=== PATIENT | male | born 1950 | race Caucasian/White ===

== ENCOUNTER 2017-06-19 15:40 | Emergency (ER) | payer MEDICARE, MEDICAID ==
[~2017-06-19] VITALS: Ht 190.5 cm; Wt 64.4 kg
[~2017-06-19 15:40] MED LIST: B-1100 MG PO; CALCIUM-MAGNES1 EAC4 PO; CLARINEX-D 121 EACH PO; FOLIC ACID1 MG PO; HYDROXYZINE HCL50 MG PO; KEFLEX500 MG PO; MULTI VITAMIN1 EACH PO; NIACIN100 MG PO; OMEGA 3 1,0001 EACH PO; VITAMIN D5000 UNIT PO
[2017-06-19] MEDS ORDERED: IBUPROFEN200 M1 PO (15:52)
--- NOTE | 2017-06-21 00:36 | EKG ---
[facility] [address] [facility] [place], [place] [address] Signed Sinus rhythm with short MD Otherwise normal ECG No previous ECGs available Confirmed by SHARIF JAMES MD ([id number]) on 06/21/2017 12:36:36 AM Electronically Signed By: SHARIF JAMES MD 06/21/17 0036 PATIENT NAME: ELHAM RODRIGUEZ JOEL Electrocardiogram DATE OF : 50 PHYSICIAN: SHARIF JAMES MD REPORT #: [id number] REPORT IS CONFIDENTIAL AND NOT TO BE RELEASED WITHOUT AUTHORIZATION
== END 2017-06-19 17:20 | disposition home or self-care (01) ==
LOC: ED 15:40
DX: S46.911A Strain of unspecified muscle, fascia and tendon at shoulder and upper arm level, right arm, initial encounter (principal); S46.912A Strain of unspecified muscle, fascia and tendon at shoulder and upper arm level, left arm, initial encounter; F17.200 Nicotine dependence, unspecified, uncomplicated; X58.XXXA Exposure to other specified factors, initial encounter
CPT/HCPCS: 71020; 80053; 84484; 85025; 93005; 93010; 96374; 99283; J1885

== ENCOUNTER 2018-12-09 07:36 | Day surgery (SDC) | payer MEDICARE, MEDICAID ==
[~2018-12-09] VITALS: Ht 190.5 cm; Wt 69.8 kg
[~2018-12-09 07:36] MED LIST changes: +ALLERGY RELIEF10 MG PO; +IBUPROFEN200 M1 PO; +MULTI VITAMIN1 EACH; +PREVNAR 13 SYR0.5 ML; +VITAMIN D400 UNIT PO
--- NOTE | 2018-12-09 09:33 | NUR ---
12/09/18 0933 Georgie Wyatt 0903 PATIENT ARRIVES TO PACU AWAKE OFF/ON. RESP EVEN AND UNLABORED, NC AT 3 LITERS, TURNED OFF ON ARRIVAL WITH ROOM AIR SATS >95%. PATIENT DENIES PAIN OR NAUSEA WHEN AWAKE, PASSING GAS.
--- NOTE | 2018-12-10 21:40 | OR ---
[facility] [address] [place], [place] [address] Signed DATE OF OPERATION: SURGEON: Montserrat Osei MD PREOPERATIVE DIAGNOSES: 1. Episodes of left lower abdominal pain, suggestive of diverticulitis. 2. Recent persisting nagging right lower quadrant pain. POSTOPERATIVE DIAGNOSES: 1. Sigmoid diverticulosis. 2. Small polyp of left colon and cecum. 3. 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 PROCEDURE PERFORMED: Total colonoscopy to cecum with cold morcellation polypectomy x3. ANESTHESIA: Intravenous sedation, fentanyl 100 mcg, Versed 4 mg. INDICATION: This 68-year-old white man is a patient of Dr. Mary Villarreal. He has had complaints of left lower abdominal pain, which have been ongoing. He also has some rectal bleeding in the past, none recently, however. He also has recently developed right lower abdominal pain. This is a nagging type pain, not worsening, but not improving either. He is admitted at this time to undergo colonoscopy. He understands the risks of bleeding, infection, and perforation. FINDINGS: The prep was good. Complete colonoscopy was undertaken to the cecum. Diverticula were noted in the sigmoid. There were 2 small polyps of the left colon and cecum, but most importantly an adenoma of the orifice of the appendix. Whether or not this is causing an appendiceal colic type problem is uncertain. Polypectomy was undertaken. DESCRIPTION OF PROCEDURE: The patient was brought to the endoscopy suite and placed in lateral decubitus position, given intravenous sedation to a point of slurred speech and nystagmus. Digital rectal examination was normal. An Olympus video colonoscope was passed in the rectum and manipulated throughout the colon. Numerous diverticula were seen in the sigmoid. Scope was ultimately advanced to the cecum itself. Close inspection showed the appendiceal orifice to have an adenoma in Electronically Signed By: MONTSERRAT OSEI MD 12/10/18 0571 PATIENT NAME: ELHAM RODRIGUEZ OPERATIVE REPORT DATE OF : 50 REPORT #: [id number] PHYSICIAN: MONTSERRAT OSEI MD PCP: MARY VILLARREAL MD REPORT IS CONFIDENTIAL AND NOT TO BE RELEASED WITHOUT AUTHORIZATION [facility] [address] [place], [place] [address] Signed its lumen. With various manipulations, it was grasped and multiple biopsies and excised completely. Bleeding stopped reasonably promptly. There was another small polyp in the cecum itself, which was excised with cold morcellation technique. The scope was then withdrawn from that point and there were no abnormalities until the mid descending colon where a small probably hyperplastic polyp was noted. This was excised with cold morcellation technique. Further withdrawal confirmed diverticular changes of the sigmoid. Retroflexed view of the rectum was normal. Scope was removed. The patient was taken to recovery room in good condition. CONCLUDING DIAGNOSES: 1. Appendiceal orifice adenoma (excised). Uncertain if this is causing right appendiceal colic. 2. Small polyps of cecum and left colon. 3. Extensive diverticulosis, sigmoid. PLAN: Recommend Citrucel one scoop p.o. daily. We will review his operative findings and see him back in the office in 4-6 weeks and assess his issue regarding right lower abdominal pain, which may or may not be related to appendiceal lumen adenoma Montserrat Osei MD JM/MODL /[id number] cc: Mary Villarreal MD Copies: MARY VILLARREAL MD ~ Electronically Signed By: MONTSERRAT OSEI MD 12/10/18 2140 PATIENT NAME: ELHAM RODRIGUEZ OPERATIVE REPORT DATE OF : 50 REPORT #: [id number] PHYSICIAN: MONTSERRAT OSEI MD PCP: MARY VILLARREAL MD REPORT IS CONFIDENTIAL AND NOT TO BE RELEASED WITHOUT AUTHORIZATION
== END 2018-12-09 10:10 | disposition home or self-care (01) ==
LOC: OPS 07:36 → DS 09:00 → OPS 09:00
PROVIDERS: Surgery
PROC: 0DBM8ZZ Excision of Descending Colon, Via Natural or Artificial Opening Endoscopic (ICD-10-PCS; 2018-12-09)
PROC: 0DBJ8ZZ Excision of Appendix, Via Natural or Artificial Opening Endoscopic (ICD-10-PCS; 2018-12-09)
PROC: 0DBH8ZZ Excision of Cecum, Via Natural or Artificial Opening Endoscopic (ICD-10-PCS; principal; 2018-12-09 09:00)
DX: D12.0 Benign neoplasm of cecum (principal); D12.1 Benign neoplasm of appendix; K63.5 Polyp of colon; K57.30 Diverticulosis of large intestine without perforation or abscess without bleeding; H40.9 Unspecified glaucoma; K12.0 Recurrent oral aphthae; F10.21 Alcohol dependence, in remission; Z87.891 Personal history of nicotine dependence
CPT/HCPCS: 99153; G0500; J2250; J3010; J7120

== ENCOUNTER 2020-07-09 07:42 | Day surgery (SDC) | payer MEDICARE, MEDICAID ==
[~2020-07-09] VITALS: Ht 190.5 cm; Wt 76.2 kg
[~2020-07-09 07:42] MED LIST changes: +CBD OIL; +HEALTHY HEART1 EACH PO; +IBUPROFEN600 MG PO; +MAGNESIUM250 MG PO; +PERCOCET 7.5-31 EACH PO; +SILDENAFIL20 MG PO; +THC OIL; +TYLENOL325 MG PO; +VENTOLIN HFA18 GM INH; +XVITE TABLET1 EACH PO
[2020-07-09] MEDS ORDERED: PRESERVISION A1 EACH PO (08:20)
--- NOTE | 2020-07-09 10:53 | NUR ---
07/09/20 1052 Georgie Wyatt 1047 PATIENT ARRIVES TO PACU UNRESPONSIVE TO PAIN. JAW THRUST BY RN IN PLACE. RESP EVEN AND UNLABORED, MASK AT 6 LITERS.
--- NOTE | 2020-07-09 11:33 | NUR ---
1115: PT ARRIVES TO DS RM 3 FROM PACU DROWSY. PT STATES FEELING "GROGGY" AND THAT HE FEELS LIKE HE HAS TO SNEEZE. PT DENIES PAIN AND STATES MORE OF AN ANNOYANCE. PT STATES URGE TO VOID, PROVIDED URINAL. SPOUSE AT BEDSIDE. UNABLE TO OBTAIN BP WITH MONITOR, TAKEN MANUALLY. PT ENCOURAGED TO REST, CALL LIGHT AT BEDSIDE.
[2020-07-09] MEDS ORDERED: NORCO 5-325 TA1 EACH PO (12:07)
[2020-07-09] MEDS ORDERED: KEFLEX500 MG PO (12:07)
--- NOTE | 2020-07-09 12:31 | NUR ---
PT CONT TO REST IN BED AND WATCH TV WITH SPOUSE AT BEDSIDE. PT STATES, "I STILL FEEL PRETTY GROGGY IN THE HEAD." PT RATES PAIN 2/10 AND STATES FEELIN "PRESSURE AND FULLNESS." PT PROVIDED PUDDING PER REQUEST. CALL LIGHT WITHIN REACH.
--- NOTE | 2020-07-09 13:10 | NUR ---
PT UP TO BATHROOM WITH RN ASSIST, STEADY GAIT. PT ABLE TO VOID WITH NO PROBLEMS. RN ASSIST BACK TO DS RM 3, PT STATES, "I FEEL A LITTLE LIGHT HEADED BUT NOTHING TO BE TOO CONCERNED ABOUT." PT BACK IN BED. USING TISSUES TO BLOT RED BLOOD RUNNING DOWN LIP. SPOUSE AT BEDSIDE, CALL LIGHT WITHIN REACH.
--- NOTE | 2020-07-09 14:14 | NUR ---
PT IS TAKEN TO VEHICLE VIA . HE IS ABLE TO TRANSFER HIMSELF FROM WC TO VEHICLE.
--- NOTE | 2020-07-10 10:44 | OR ---
[facility] [address] [place], [place] [address] Signed DATE OF OPERATION: 07/09/2020 SURGEON: Siddhartha Miller MD PREOPERATIVE DIAGNOSIS: Nasal obstruction due to septal deformity and inferior turbinate hypertrophy. POSTOPERATIVE DIAGNOSIS: Nasal obstruction due to septal deformity and inferior turbinate hypertrophy. PROCEDURES: 1. Septoplasty. 2. Cautery, bilateral inferior turbinates. ANESTHESIA: General, LMA; LAND LEASING EXAMINER, Frandy. PREOP HISTORY: Elham is a 69-year-old man with nasal obstruction, prison due to septal deformity and inferior turbinate hypertrophy, unresponsive to appropriate medications. He is taken to the operating room for the above-mentioned procedures. OPERATIVE PROCEDURE AND FINDINGS: After informed consent, the patient was taken to the operating room, placed in supine position, where general LMA anesthesia was induced. The patient and procedure were verified. The patient was repositioned. The patient received preoperative intravenous Ancef and intranasal oxymetazoline. Headlight speculum exam of the nasal cavity showed septal deformity with spurs inferiorly bilaterally obstructive. A 1% lidocaine with epi was injected into the septal mucosa. Mucosa was elevated off this deviated septal bone and cartilage spurs and these spurs were excised with the Alfredo bilaterally. Airway was improved in this manner. The inferior turbinates were then cauterized with a long handle needle point cautery multiple passes starting on the right side. The medial and inferior surface of the inferior turbinate starting anteriorly extending all the way back posteriorly. Excellent decongestion was obtained. The left inferior turbinate was treated in the same manner. Excellent improvement in the nasal passages. Minimal bleeding stopped afterwards. Packing was then placed. Trimmed Merocel one piece each side coated with Neosporin tied anteriorly over a pad. The pharynx was suctioned clear of blood secretions. The patient was then awakened, extubated, and transported to the recovery Electronically Signed By: SIDDHARTHA MILLER MD 07/09/20 5164 PATIENT NAME: ELHAM RODRIGUEZ OPERATIVE REPORT DATE OF : 50 REPORT #: [id number] PHYSICIAN: SIDDHARTHA MILLER MD PCP: MARY BARAJAS MD REPORT IS CONFIDENTIAL AND NOT TO BE RELEASED WITHOUT AUTHORIZATION [facility] [address] [place], [place] [address] Signed room in good condition. No complications. ESTIMATED BLOOD LOSS: Minimal. SPECIMENS: No specimens. DRAINS: No drains. PACKING: One piece of Merocel at each nostril. Siddhartha Miller MD GC/MODL /[id number] Copies: ~ Electronically Signed By: SIDDHARTHA MILLER MD 07/09/20 1436 PATIENT NAME: ELHAM RODRIGUEZ OPERATIVE REPORT DATE OF : 50 REPORT #: [id number] PHYSICIAN: SIDDHARTHA MILLER MD PCP: MARY BARAJAS MD REPORT IS CONFIDENTIAL AND NOT TO BE RELEASED WITHOUT AUTHORIZATION
== END 2020-07-09 13:55 | disposition home or self-care (01) ==
LOC: OPS 07:42 → DS 07:44 → OPS 08:30 → DS 08:30 → OPS 09:45
PROVIDERS: ATTEND Otolaryngology
PROC: 09BM0ZZ Excision of Nasal Septum, Open Approach (ICD-10-PCS; principal; 2020-07-09 09:45)
PROC: 095L0ZZ Destruction of Nasal Turbinate, Open Approach (ICD-10-PCS; 2020-07-09 09:45)
DX: J34.2 Deviated nasal septum (principal); J34.3 Hypertrophy of nasal turbinates; J34.89 Other specified disorders of nose and nasal sinuses; J43.9 Emphysema, unspecified; R12 Heartburn; H54.40 Blindness, one eye, unspecified eye; Z87.891 Personal history of nicotine dependence; Z79.899 Other long term (current) drug therapy
CPT/HCPCS: 00160; J0690; J1100; J2001; J2405; J2704; J3010; J7121

== ENCOUNTER 2021-12-07 17:18 | Emergency (ER) | payer MEDICARE, MEDICAID ==
[~2021-12-07] VITALS: Ht 190.5 cm; Wt 76.2 kg
[~2021-12-07 17:18] MED LIST changes: +NORCO 5-325 TA1 EACH PO; +PRESERVISION A1 EACH PO
--- OUTSIDE RECORDS SUMMARY | 2021-12-07 17:22 | XMS ---
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 ELisbeth VISIT COUNT (12 MO.) 1 JERAD Echeverria TOTAL 1 NOTE: Visits indicate total known visits. ED/UCC VISIT TRACKING (12 MO.) 12/07/2021 17:19 JERAD [place] TYPE: Emergency COMPLAINT: - CHEST PAIN INPATIENT VISIT TRACKING (12 MO.) No inpatient visits to display in this time frame [email or web address]
== END 2021-12-07 20:25 | disposition home or self-care (01) ==
LOC: ED 17:18
DX: R03.0 Elevated blood-pressure reading, without diagnosis of hypertension (principal); Z87.891 Personal history of nicotine dependence; Z79.899 Other long term (current) drug therapy
CPT/HCPCS: 36415; 71045; 80053; 84484; 85025; 99284-25

== ENCOUNTER 2024-02-28 11:24 | Emergency (ER) | payer MEDICARE, MEDICAID ==
[~2024-02-28] VITALS: Ht 190.5 cm; Wt 65.7 kg
--- OUTSIDE RECORDS SUMMARY | 2024-02-28 11:25 | XMS ---
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 Leti has no Care Guidelines for this patient. Cecile VISIT COUNT (12 MO.) 2 JERAD Echeverria TOTAL 2 NOTE: Visits indicate total known visits. ED/UCC VISIT TRACKING (12 MO.) 02/28/2024 11:25 JERAD [place] TYPE: Emergency COMPLAINT: - ABNORMAL LAB RESULTS 09/15/2023 15:33 JERAD [place] TYPE: Emergency COMPLAINT: - SOB, CHEST TIGHTNESS DIAGNOSES: - Chronic obstructive pulmonary disease, unspecified - Dyspnea, unspecified - Essential (primary) hypertension - Other [place] [facility] ([facility] drug therapy - Personal history of nicotine dependence - Viral infection, unspecified INPATIENT VISIT TRACKING (12 MO.) No inpatient visits to display in this time frame [email or web address]
[2024-02-28 12:32] LABS: BASOPHILS 0.2 % (0-2); EOSINOPHILS 0.7 % (0-6); HEMATOCRIT 18.6 % (35.0-50.0); LYMPHOCYTES 14.3 % (24-44); MCH 25.8 (27-36); MCHC 30.2 g/dl (30-36); MCV 85.4 fl (81-99); MONOCYTES 17.5 % (0-12); NEUTROPHILS 67.3 % (39-80); PLATELET COUNT 319 K/uL (140-440); RBC 2.18 M/ul (4.3-5.7); RDW 20.3 (10.5-15.0)
[2024-02-28 12:33] LABS: HEMOGLOBIN 5.6 g/dL (12.0-18.0)
[2024-02-28 12:43] LABS: INR 1.23 (0.80-1.30); PARTIAL THROMBOPLASTIN TIME 34.1 Sec (22.9-41.3); PROTIME 14.8 Sec (11.2-14.2)
[2024-02-28 12:48] LABS: ALBUMIN 2.7 g/dL (3.4-5.0); ALBUMIN/GLOBULIN RATIO 0.82 (1.1-2.4); ANION GAP 15.2 (7-21); BILIRUBIN, TOTAL 0.8 ng/dL (0.2-1.0); BUN/CREATININE RATIO 20.58 (6.0-28.6); CALCIUM 8.3 mg/dL (8.5-10.1); CREATININE, SERUM 0.68 mg/dL (0.70-1.30); POTASSIUM 3.2 mmol/L (3.5-5.1)
[2024-02-28 13:09] LABS: ABO A; ANTIBODY SCREEN NEGATIVE; RH NEGATIVE
[2024-02-28 13:10] LABS: IS CROSSMATCH COMPATIBLE
[2024-02-28 17:26] VITALS: BP 168/76
[2024-03-01 07:39] LABS: RBC, LEUKOREDUCED 18212412599500W
[2024-03-01 07:40] LABS: RBC, LEUKOREDUCED 18212412403400Z
== END 2024-02-28 17:55 | disposition home or self-care (01) ==
LOC: ED 11:24
PROVIDERS: Emergency Medicine
DX: D64.9 Anemia, unspecified (principal); R91.8 Other nonspecific abnormal finding of lung field; I10 Essential (primary) hypertension; Z87.891 Personal history of nicotine dependence; Z79.899 Other long term (current) drug therapy
CPT/HCPCS: 36415; 36430; 74174; 80053; 85025; 85060; 85610; 85730; 86850; 86900; 86901; 86922; 99285-25; P9016; Q9967

== ENCOUNTER 2024-05-11 02:44 | Inpatient (IN) | payer MEDICARE, OTHER ==
[~2024-05-11] VITALS: Ht 190.5 cm; Wt 71.3 kg
[2024-05-11] VITALS (9 sets, daily range): BP systolic 151–188; BP diastolic 50–95
[~2024-05-11 02:44] MED LIST changes: +ACETAMINOPHEN500 MG PO; +GABAPENTIN300 MG PO; +IRON325 M1 PO; +LISINOPRIL20 MG PO; +METOPROLOL SUCC25 MG PO; +PROTONIX40 MG PO
[2024-05-11] MEDS ORDERED: IBLOOD GLUCOSE TEST STRIP 1 EA TEST XX ONE (03:00)
[2024-05-11 03:15] LABS: BASOPHILS 0.3 % (0-2); EOSINOPHILS 1.8 % (0-6); HEMATOCRIT 26.9 % (35.0-50.0); HEMOGLOBIN 8.5 g/dL (12.0-18.0); LYMPHOCYTES 27.1 % (24-44); MCH 28.9 (27-36); MCHC 31.5 g/dl (30-36); MCV 91.9 fl (81-99); MONOCYTES 11.1 % (0-12); NEUTROPHILS 59.7 % (39-80); PLATELET COUNT 203 K/uL (140-440); RBC 2.93 M/ul (4.3-5.7); RDW 22.6 (10.5-15.0)
[2024-05-11] MEDS ORDERED: MULTIVITAMINS 10 ML,FOLIC ACID 1 MG,THIAMINE HCL 100 MG in SODIUM CHLORIDE 0.9% 1,000 ML IV ONE (03:15)
[2024-05-11] MEDS ORDERED: FOLIC ACID 1 MG/0.2 ML ML ONE (03:16)
[2024-05-11 03:20] LABS: INR 1.25 (0.80-1.30); PROTIME 15.3 Sec (11.2-14.2)
[2024-05-11 03:28] LABS: ALBUMIN/GLOBULIN RATIO 0.91 (1.1-2.4); ANION GAP 13.1 (7-21); BILIRUBIN, TOTAL 0.6 ng/dL (0.2-1.0); BUN/CREATININE RATIO 14.28 (6.0-28.6); CALCIUM 7.7 mg/dL (8.5-10.1); CREATININE, SERUM 0.7 mg/dL (0.70-1.30); POTASSIUM 3.1 mmol/L (3.5-5.1); PROTEIN, TOTAL 6.3 g/dL (6.4-8.2)
[2024-05-11] MEDS ORDERED: DIPHTH,PERTUSS(ACELL),TET VAC 0.5 ML SYRINGE IM ONE (03:30)
[2024-05-11] MEDS ORDERED: CALCIUM CARBONATE 500 MG CHEW PO ONE (04:15)
[2024-05-11] MEDS ORDERED: POTASSIUM CHLORIDE 10 MEQ TABCR PO ONE (04:15)
[2024-05-11 04:45] LABS: BILIRUBIN, URINE NEGATIVE (negative); BLOOD/HGB, URINE NEGATIVE (Negative); KETONE, URINE NEGATIVE (Negative); LEUK ESTERASE, URINE NEGATIVE (negative); NITRITE, URINE NEGATIVE (negative)
[2024-05-11] MEDS ORDERED: MAGNESIUM OXIDE 400 MG TABLET PO ONE (04:45)
[2024-05-11 04:50] LABS: BACTERIA, URINE RARE /hpf (negative); CRYSTALS, URINE NONE SEEN (0-1+); EPITHELIAL CELLS, URINE SQUAMOUS 1+ /lpf (0-1+); RED BLOOD CELLS, URINE 0-1 /hpf (0-5); WHITE BLOOD CELLS, URINE 0-1 /HPF (0-5)
[2024-05-11 04:51] LABS: CASTS, URINE NONE SEEN \\lpf; COLLECTION TYPE, URINE CLEAN CATCH; REFLEX CULTURE, URINE No (No)
[2024-05-11 04:57] LABS: AMPHETAMINES, URINE NEGATIVE (NEGATIVE); BARBITURATES, URINE NEGATIVE (NEGATIVE); BENZODIAZEPINE, URINE NEGATIVE (NEGATIVE); BUPRENORPHINE, URINE NEGATIVE (NEGATIVE); CANNABINOID, URINE NEGATIVE (NEGATIVE); COCAINE, URINE NEGATIVE (NEGATIVE); ECSTASY, URINE NEGATIVE (NEGATIVE); FENTANYL, URINE NEGATIVE (NEGATIVE); METHADONE, URINE NEGATIVE (NEGATIVE); OPIATES, URINE NEGATIVE (NEGATIVE); OXYCODONE, URINE NEGATIVE (NEGATIVE); PHENCYCLIDINE, URINE NEGATIVE (NEGATIVE)
[2024-05-11] MEDS ORDERED: cloNIDine HCL 0.1 MG TAB PO PRN (06:15)
[2024-05-11] MEDS ORDERED: LORazepam 1 MG TAB PO PRN (06:15)
[2024-05-11] MEDS ORDERED: LORazepam 2 MG/ML VIAL IV/IM PRN ×2 (06:15→13:30)
[2024-05-11 09:06] LABS: GLUCOSE, CSF 54 mg/dL (40-70); PROTEIN, CSF 74 mg/dL (15-45)
[2024-05-11 09:12] LABS: CLARITY, CEREBROSPINAL FLUID CLEAR; COLOR, CEREBROSPINAL FLUID COLORLESS; WBC, CEREBROSPINAL FLUID 0
[2024-05-11 09:19] LABS: ALBUMIN 2.8 g/dL (3.4-5.0); ALBUMIN/GLOBULIN RATIO 0.88 (1.1-2.4); ANION GAP 10.7 (7-21); BILIRUBIN, TOTAL 0.5 ng/dL (0.2-1.0); BUN/CREATININE RATIO 12.9 (6.0-28.6); CALCIUM 7.7 mg/dL (8.5-10.1); CREATININE, SERUM 0.62 mg/dL (0.70-1.30); MAGNESIUM 1.6 mg/dL (1.8-2.4); POTASSIUM 3.7 mmol/L (3.5-5.1)
[2024-05-11 09:34] LABS: RBC, CEREBROSPINAL FLUID 117
[2024-05-11] MEDS ORDERED: LORazepam 2 MG TABLET PO SCH (10:00)
[2024-05-11] MEDS ORDERED: LORazepam 2 MG/ML VIAL IV SCH (10:00)
[2024-05-11] MEDS ORDERED: SEVOFLURANE 250 ML BTL INH ONE (10:17)
[2024-05-11] MEDS ORDERED: FOLIC ACID 1 MG/0.2 ML ML IV SCH (13:30)
[2024-05-11] MEDS ORDERED: THIAMINE HCL 200 MG/2 ML VIAL IV SCH (13:30)
--- NOTE | 2024-05-11 13:30 | NUR ---
PT TO ROOM RM 130 FROM ER [facility] MOVED TO NEW BED, ORIENTED TO ROOM AND CALL LIGHT, INC OF URINE AND ATTEMPTED TO USE URINAL. 400 ML URINE. SKIN ASSESSMENT DONE AND REPORT AT BEDSIDE.
--- NOTE | 2024-05-11 13:43 | NUR ---
PT NOT AVAILABLE FOR VISIT. PROVIDED PRAYER.
--- NOTE | 2024-05-11 14:06 | NUR ---
UR CLINICAL REVIEW: [facility] OBS FOR APPENDECTOMY EOCCO OBS 05/11/24 @ 0132 ORDER MATCHES REG NO AUTH REQUIRED FOR OBS PER MEDICAID RULES PLAN TO DC HOME WITH PARENTS WHEN STABLE 05/12/24
[2024-05-11] MEDS ORDERED: CEFTRIAXONE/SODIUM CHLORIDE 1 GM/100 ML PIGGYBACK IV SCH (15:15)
[2024-05-11] MEDS ORDERED: MAGNESIUM SULFATE 2 GM/50 ML BAG IV SCH (15:15)
[2024-05-11] MEDS ORDERED: DAPTOmycin 500 MG/10 ML VIAL IV SCH (15:15)
--- NOTE | 2024-05-11 15:31 | EKG ---
[facility] [address] [facility] [place] [address] Signed Normal sinus rhythm Normal ECG When compared with ECG of 15-SEP-2023 15:38, T wave inversion no longer evident in Anterior leads Confirmed by Bora Lewis MD ([id number]) on 05/11/2024 3:31:21 PM Electronically Signed By: BORA LEWIS MD 05/11/24 1531 PATIENT NAME: YINGELHAM SANCHEZ Electrocardiogram DATE OF : 50 PHYSICIAN: BORA LEWIS MD REPORT #: [id number] REPORT IS CONFIDENTIAL AND NOT TO BE RELEASED WITHOUT AUTHORIZATION
[2024-05-11] MEDS ORDERED: VENTOLIN HFA18 GM INH (15:49)
[2024-05-11] MEDS ORDERED: INCRUSE ELLI62.5 MCG INH (15:49)
--- NOTE | 2024-05-11 16:07 | NUR ---
iv mg in right iv arm, iv ceftriaxone in left iv site. pt awake on phone, confused doesnt know why he is in here, bed alarm on, tremor noted. prn ativan iv given. water at bedside, pt void 300ml urine in urinal.
--- NOTE | 2024-05-11 16:26 | NUR ---
pt sister in law called states pt has a room at [facility] - and they are awaiting him. He has a sister named jazzy in [place] who she will update. pt resting at this time with abx.
[2024-05-11] MEDS ORDERED: VITAMIN C500 M1 PO (17:56)
[2024-05-11] MEDS ORDERED: BRIMONIDINE-TIMO5 ML OU (17:56)
[2024-05-11] MEDS ORDERED: IRON325 M1 PO (17:56)
[2024-05-11] MEDS ORDERED: REFRESH PLUS1 EACH OU (17:57)
--- NOTE | 2024-05-11 17:57 | NUR ---
MED REC COMPLETE
--- NOTE | 2024-05-11 18:03 | NUR ---
pt inc of urine, linen change - pivot trsf 1 person to for dinner. r leg warm, swollen and painful. call light in reach - in view of rn in room. asked for a chair alarm. rn stays in room with pt. he has tremors noted in hands. eating well feeding self. drinks water well.
--- NOTE | 2024-05-11 19:30 | NUR ---
REPORT RECEIVED FROM JIM NEWELL. PATIENT SITTING UP IN CHAIR WHILE WATCHING TV. REQUESTS TO GO TO BED. EXPLAIN POC FOR SHIFT AND WILL ASSIST PATIENT TO MOVE TO BED AFTER ASSESSMENT.
--- NOTE | 2024-05-11 20:16 | NUR ---
PATIENT ASSISTED FROM CHAIR TO BED WITH 2 PERSON ASSIST. C/O PAIN IN RLE. PATIENT UNABLE TO BEAR WEIGHT. EXTERNAL MALE CATHETER PLACED. WARM BLANKETS PROVIDED AND FRESH WATER. CALL LIGHT IN REACH WITH BED EXIT ALARM ON.
[2024-05-11] MEDS ORDERED: OXYCODONE HCL 5 MG TAB PO PRN (21:15)
[2024-05-11] MEDS ORDERED: ACETAMINOPHEN 325 MG TAB PO PRN (21:15)
--- NOTE | 2024-05-11 21:51 | NUR ---
PATIENT USED CALL LIGHT TO REQUEST ASSISTANCE WITH URINAL. REMINDED PATIENT HE HAS A MALE EXTERNAL CATHETER ON AND HE CAN VOID. RE-EDUCATED ON HOW EXTERNAL CATHETER WORKS. PATIENT DENIES OTHER NEEDS AT THIS TIME. CALL LIGHT AND PERSONAL ITEMS IN REACH, BED EXIT ALARM ON FOR SAFETY.
[2024-05-12] VITALS (19 sets, daily range): BP systolic 81–193; BP diastolic 49–152
--- NOTE | 2024-05-12 00:09 | NUR ---
PATIENT WAKES EASILY FOR ASSESSMENT. MEDICATED WITH TYLENOL FOR RLE PAIN. PATIENT DOES NOT RATE WITH A NUMBER BUT WINCES AND STATES "IT HURTS PRETTY BAD". ASSISTED WITH REPOSITIONING IN BED. CALL LIGHT IN REACH WITH BED EXIT ALARM ON FOR SAFETY.
--- NOTE | 2024-05-12 00:54 | NUR ---
PATIENT WAKES DURING ROUNDING. WARM BLANKET PROVIDED. PATIENT REPORTS TYLENOL IS HELPING HIS PAIN. DENIES OTHER NEEDS OR CONCERNS. CALL LIGHT IN REACH, BED EXIT ALARM ON FOR SAFETY.
--- NOTE | 2024-05-12 02:02 | NUR ---
PATIENT WAKES AND REQUESTS SNACK. PUDDING GIVEN. DENIES OTHER NEEDS, CALL LIGHT IN REACH WITH BED EXIT ALARM ON.
--- NOTE | 2024-05-12 02:49 | NUR ---
PATIENT REPORTS TYLENOL HELPED SOME BUT C/O "EXCRUTIATING" R FOOT/ANKLE PAIN WITH MOVMENT. MEDICATED PER EMAR FOR PAIN. PATIENT REQUESTS COFFEE. ENCOURAGED TO HOLD OFF ON CAFFEINE AND ATTEMPT TO REST. PATIENT AGREEABLE. CALL LIGHT IN REACH, MALE EXTERNAL CATHETER REMAINS IN PLACE. BED EXIT ALARM ON.
--- NOTE | 2024-05-12 04:16 | NUR ---
PATIENT RESTING QUIETLY WITH EYES CLOSED. RESPIRATIONS EVEN AND UNLABORED. PATIENT POSITIONING HIMSELF INDEPENDENTLY FROM SIDE TO SIDE. CALL LIGHT IN REACH WITH BED EXIT ALARM ON FOR PATIENT SAFETY.
[2024-05-12 05:35] LABS: BASOPHILS 0.2 % (0-2); EOSINOPHILS 0.6 % (0-6); HEMATOCRIT 25.7 % (35.0-50.0); HEMOGLOBIN 8.3 g/dL (12.0-18.0); LYMPHOCYTES 12.9 % (24-44); MCHC 32.5 g/dl (30-36); MCV 89.2 fl (81-99); MONOCYTES 17.2 % (0-12); NEUTROPHILS 69.1 % (39-80); PLATELET COUNT 177 K/uL (140-440); RBC 2.88 M/ul (4.3-5.7)
[2024-05-12 05:44] LABS: ANION GAP 9.8 (7-21); BUN/CREATININE RATIO 10.14 (6.0-28.6); CALCIUM 8.4 mg/dL (8.5-10.1); CREATININE, SERUM 0.69 mg/dL (0.70-1.30); MAGNESIUM 2.3 mg/dL (1.8-2.4); POTASSIUM 3.8 mmol/L (3.5-5.1)
--- NOTE | 2024-05-12 07:30 | NUR ---
report from cleaner laboratory equipment rn theron, pt resting in bed with eyes closed, call light in reach - has bp 157/61 improved from htn in night. painful r ankle with swelling, redness and heat.
--- NOTE | 2024-05-12 08:03 | NUR ---
call to update dr tuttle to update on htn and home meds of lisinopril etc. inquired about weight bearing status and ortho consult. will assess.
[2024-05-12] MEDS ORDERED: PANTOPRAZOLE SODIUM 40 MG TABEC PO SCH (09:00)
[2024-05-12] MEDS ORDERED: ENOXAPARIN SODIUM 40 MG/0.4 ML SYR SUB-Q SCH (09:00)
[2024-05-12] MEDS ORDERED: CYANOCOBALAMIN 1,000 MCG TAB PO SCH (09:29)
--- NOTE | 2024-05-12 10:00 | NUR ---
pt up in ch from PT - has sitter in room for safety due to confusion, impulsivness, and failure to follow direction. up in chair.
--- NOTE | 2024-05-12 10:48 | NUR ---
PT NOT AVAILABLE FOR VISIT. PROVIDED PRAYER.
--- NOTE | 2024-05-12 11:13 | NUR ---
pt non weight bearing trsf back to bed, po prn meds given for pain, bed alarm on. call light in reach.
[2024-05-12] MEDS ORDERED: PHARMACY RENAL DOSE ADJUSTMENT 1 DOSE MISC PO SCH (12:00)
--- NOTE | 2024-05-12 12:08 | NUR ---
PATIENT ALERT AND ORIENTED, FORGETFUL AT TIMES. STATES HE IS GOING TO BE ADMITTED TO FACILITY IN [place], [facility], HE IS UNABLE TO REMEMBER THE NAME OF THE FACILITY. STATES HE CURRENTLY LIVES ALONE AND HAD 3 HOURS OF CAREGIVER ASSIGNED BY [facility]. STATES HE HAS A CANE AND 2 WALKERS. STATES HE IS ALSO ATTEMPTING TO GET AN ELECTRIC WHEELCHAIR. CONTINUES TO DRIVE. POOJA BARNES IS HIS EMERGENCY CONTACT [phone]. CALLED [facility] AND MESSAGE LEFT REGARDING VERIFICATION OF PLAN FOR ADMIT TO THE FACILITY IN THE NEXT WEEK. PATIENT UNSURE IF HE WILL BE MOVING IN OR NOT.
--- NOTE | 2024-05-12 12:27 | NUR ---
PATIENT REPORTS INCREASED ANXIETY AND HEADACHE WORSE THAN HIS NORMAL BASELINE. PATIENTS CIWA 9.
--- NOTE | 2024-05-12 12:55 | NUR ---
dr simental in room with this rn and pt, plan for surgery on r leg after swelling and infection go down. bp is high, hr 88, ra 100%, bed alarm on. lunch to pt and sister priscilla updated by this rn on speaker phone with pt.
[2024-05-12] MEDS ORDERED: lisinopriL 20 MG TAB PO SCH (14:45)
[2024-05-12] MEDS ORDERED: METOPROLOL SUCCINATE 25 MG TABCR PO SCH (14:45)
--- NOTE | 2024-05-12 15:14 | NUR ---
pt friend brought in eye glasses and phone castings trimmer. pt complains of r ankle pain, see emar.
--- NOTE | 2024-05-12 15:27 | NUR ---
VERIFIED WITH MD SANCHEZ PATIENTS STATUS AND PLAN TO TX TO [place] TODAY. PER MD PATIENT CAN BE TRANSITIONED TO MEDICAL STATUS AND NO TELE. WILL PLACE ORDER PER MD.
--- NOTE | 2024-05-12 15:40 | NUR ---
SPOKE WITH PATIENT REGARDING SNF. STATES HE IS AGREEABLE TO SNF. PREFERS TO STAY IN [place]. AGREES TO TELL POST AC[facility]. FAXING CLINICALS FOR REFERRAL THIS AFTERNOON. PLAN FOR SURGERY Wednesday05/15/24 AND LIKELY TO BE NON-WEIGHT BEARING POST OP. PATIENT STATES HIS SISTER, POOJA, WILL BE IN ON WEDNESDAY TO SEE HIM. QUESTIONS ABOUT SNF ANSWERED. DENIES FURTHER NEEDS AT THIS TIME.
[2024-05-12] MEDS ORDERED: IPRATROPIUM BROMIDE 2.5 ML VIAL INH SCH (16:00)
[2024-05-12] MEDS ORDERED: ALBUTEROL SULFATE 0.042% 1.25 MG/3 ML VIAL INH PRN (18:15)
[2024-05-12] MEDS ORDERED: ALBUTEROL SULFATE 0.083% 3 ML VIAL INH PRN (18:30)
[2024-05-12] MEDS ORDERED: ALBUTEROL/IPRATROPIUM 3 ML NEB INH SCH (20:00)
--- NOTE | 2024-05-12 20:37 | NUR ---
SHIFT CHANGE REPORT RECEIVED FROM JIM NEWELL. PATIENT RESTING IN BED WHILE WATCHING TV. REPORTED 9/10 PAIN TO RIGHT ANKLE. MEDICATED PER EMAR FOR PAIN. NEW MALE EXTERNAL CATHETER PLACED, CANISTER EMPTIED FOR 600ML DARK YELLOW URINE. ASSISTED PATIENT WITH REPOSITIONING IN BED. WARM BLANKET PROVIDED. BED EXIT ALARM ON AND CALL LIGHT IN REACH. CALL PLACED TO DR. SANCHEZ, CONFIRMED ORDER THAT PATIENT IS MED/SURG LEVEL OF CARE. ORDER PLACED IN EMAR.
--- NOTE | 2024-05-12 21:29 | NUR ---
REVIEWED TELEMETRY NEED WITH DR. SANCHEZ. ORDER RECEIVED TO DC TELEMETRY MONITORING. PATIENT UPDATED. PLAN OF CARE REVIEWED WITH PATIENT, NEEDS REINFORCEMENT. CALL LIGHT REMAINS IN REACH. EDUCATION PROVIDED ON SAFETY MEASURES AND BED EXIT ALARM, VERBALIZED UNDERSTANDING.
--- NOTE | 2024-05-12 22:16 | NUR ---
ROUNDING FINDS PATIENT AWAKE. REPORTS HIS ANKLE IS STILL PAINFUL. MEDICATED WITH TYLENOL PER EMAR. PATIENT HAD DROPPED HIS TYLENOL ON THE FLOOR AND INSISTED THIS RN GIVE HIM THOSE TABLETS. NEW PILLS PULLED AND PATIENT EDUCATED ON INFECTION PREVENTION. WARM BLANKET PROVIDED. CALL LIGHT IN REACH AND BED EXIT ALARM ON.
[2024-05-12] MEDS ORDERED: MAGNESIUM HYDROXIDE/AL HYDROX 30 ML CUP PO PRN (22:30)
--- NOTE | 2024-05-12 22:44 | NUR ---
PATIENT C/O "BURPING UP DINNER". MAALOX ORDERED PER NIO, HOWEVER PATIENT DECLINED AT THIS TIME. DENIES OTHER NEEDS.
[2024-05-13] VITALS (8 sets, daily range): BP systolic 141–161; BP diastolic 64–79
--- NOTE | 2024-05-13 00:16 | NUR ---
PATIENT AWAKE DURING ROUNDING. REPORTS HE IS "BURPING A LOT", AGREEABLE TO MAALOX. C/O PAIN TO RIGHT ANKLE. MEDICATED PER EMAR FOR BOTH CONCERNS. PATIENT IS ALERT TO SELF, PLACE, SITUATION, MONTH AND YEAR BUT IS CONFUSED ON THE TIME AND IS IMPULSIVE. PATIENT ATTEMPTED TO GET OUT OF BED WITHOUT ASSISTANCE. RE-ORIENTED TO TIME, REST ENCOURAGED. SAFETY EDUCATION AND FALL RISK REVIEWED WITH PATIENT. BED EXIT ALARM REMAINS ON WITH BED IN LOWEST POSITION AND LOCKED. VS CHARTED.
--- NOTE | 2024-05-13 01:29 | NUR ---
PATIENT RESTING IN BED WITH EYES CLOSED. RESPIRATIONS APPEAR EVEN AND UNLABORED. PATIENT REPOSITIONING HIMSELF IN BED, TURNS FROM LEFT TO RIGHT TO SUPINE. CALL LIGHT IN REACH, BED IN LOWEST POSITION AND LOCKED WITH EXIT ALARM ON FOR SAFETY.
--- NOTE | 2024-05-13 02:09 | NUR ---
ROUNDING FINDS PATIENT AWAKE. PATIENT REPORTS HIS PAIN HAS IMPROVED AND HE WAS ABLE TO SLEEP SOUNDLY FOR A BIT. DENIES NEEDS OR CONCERNS AT THIS TIME. BED EXIT ALARM ON, CALL LIGHT IN REACH.
--- NOTE | 2024-05-13 02:52 | NUR ---
PATIENT RESTING IN BED WHILE AWAKE. REPORTS FEELING ANXIOUS ABOUT SURGERY. HAD QUESTIONS ABOUT WHAT TIME HIS PROCEDURE WILL BE AND POST CARE. PROVIDED REASSURANCE. ENCOURAGED MORE REST. PIV SITE REMAINS PATENT. PAIN IS AT A TOLERABLE LEVEL FOR PATIENT AT THIS TIME, REMINDED PATIENT TO NOTIFY NURSING ASSISTANTS TEACHER IF PAIN IS INCREASING. PATIENT REPORTS AT REST IT IS "OK" BUT WITH MOVEMENT, PAIN INCREASES. URINE CANISTER EMPTIED FOR 500ML DARK YELLOW URINE. FRESH ICE WATER PROVIDED. WARM BLANKER OFFERED TO PATIENT BUT HE DECLINED. CALL LIGHT IN REACH. BED EXTI ALARM ON.
--- NOTE | 2024-05-13 05:10 | NUR ---
SWEATBAND CUTTING MACHINE OPERATOR IN TO DRAW AM LABS. PATIENT REPORTS 3/10 PAIN. MEDICATED WITH TYLENOL PER EMAR. THIS EQUIPMENT OPERATION INSTRUCTOR STEPPED OUT OF ROOM AND IMMEDIATELY RETURNED D/T BED ALARM. PATIENT REPORTS HE WAS MOVING IN BED BUT THEN STATED "I WAS GOING TO GET UP AND GO PEE IN THE BATHROOM. I THOUGHT ABOUT SHOWERING THIS MORNING." PATIENT RE-ORIENTED TO TIME AGAIN AND RE-EDUCATED ON NWB STATUS ON RLE. EDUCATION PROVIDED ON ASSISTANCE WITH ADLS/CARES. URINE CANISTER EMPTIED FOR 350 ML DARK YELLOW URINE. PATIENT DENIES OTHER NEEDS OR CONCERNS AT THIS TIME. CALL LIGHT IN REACH, BED EXIT ALARM ON.
[2024-05-13 05:16] LABS: HEMOGLOBIN 8.5 g/dL (12.0-18.0); PLATELET COUNT 170 K/uL (140-440)
[2024-05-13 05:19] LABS: BASOPHILS 0.3 % (0-2); EOSINOPHILS 0.4 % (0-6); LYMPHOCYTES 10.7 % (24-44); MCH 28.8 (27-36); MCHC 32.7 g/dl (30-36); MCV 88.2 fl (81-99); MONOCYTES 18.9 % (0-12); NEUTROPHILS 69.7 % (39-80); RBC 2.95 M/ul (4.3-5.7); RDW 21.6 (10.5-15.0)
[2024-05-13 05:32] LABS: ANION GAP 13.4 (7-21); BUN/CREATININE RATIO 8.69 (6.0-28.6); CALCIUM 8.8 mg/dL (8.5-10.1); CREATININE, SERUM 0.92 mg/dL (0.70-1.30); MAGNESIUM 1.9 mg/dL (1.8-2.4); POTASSIUM 4.4 mmol/L (3.5-5.1)
--- NOTE | 2024-05-13 06:03 | NUR ---
PATIENT RESTING IN BED WITH EYES CLOSED IN THE SUPINE POSITION. BED EXIT ALARM ON. CALL LIGHT IN REACH.
--- NOTE | 2024-05-13 08:14 | NUR ---
IN PATIENT'S ROOM FOR AM ASSESSMENT, VITALS, BAG SEALER, AND BREAKFAST. PT STATES HE ISN'T REALLY HUNGRY, AND NORMALLY DOESN'T WAKE UP UNTIL CLOSER TO NOON. PT RATING PAIN IN RIGHT ANKLE 9/10 WHEN HE MOVES, BUT WHEN HE ISN'T MOVING, RATES IT 2/10. PRN OXYCODONE GIVEN. RIGHT ANKLE HAS SWELLING TO IT, DISCOLORATION FROM BRUISING. SKIN IS WARM, SIMILAR TEMP TO TOUCH LEFT LEG. PT HOWEVER DOES NOT HAVE SENSATION FROM SOFT TOUCH OR SHARP OBJECT SENSATION IN FOOT, ANKLE OR CARROLL. PT STARTS TO HAVE DECREASED SENSATION AROUND THE KNEE LEVEL. PULSES ARE NOT PALPABLE ON EITHER FOOT, AND DOPPLER IS USED. PULSES EASY TO FIND ON LEFT NON INJURED FOOT BUT HARDER TO LOCATE AND SEEMS DECREASED ON RIGHT PEDAL PULSE. POSTERIOR TIBIAL PULSE IS EASY TO DOPPER ON RIGHT FOOT. PT IS ALERT, ORIENTED TO DATE, SITUATION, EVENT, BUT DOES ASK, "WHAT TIME DO I NEED TO BE AT THE SURGEONS OFFICE ON WEDNESDAY?" EXPLAINED TO PATIENT THAT HE WILL REMAIN IN HOSPITAL UNTIL SURGERY. HE IS AWARE THAT HE MAY CHANGE ROOMS, HE IS NOW MED/SURG STATUS.
[2024-05-13] MEDS ORDERED: THIAMINE HCL 100 MG TAB PO SCH (09:00)
[2024-05-13] MEDS ORDERED: SENNOSIDES/DOCUSATE 1 EA TAB PO SCH (09:00)
[2024-05-13] MEDS ORDERED: FOLIC ACID 1 MG TAB PO SCH (09:00)
--- NOTE | 2024-05-13 09:28 | NUR ---
DR. SANCHEZ IN TO SEE PATIENT. PLAN OF CARE DISCUSSED. PT TO HAVE HIS GABAPENTIN RESTARTED.
[2024-05-13] MEDS ORDERED: GABAPENTIN 300 MG CAP PO SCH (09:30)
--- NOTE | 2024-05-13 10:24 | NUR ---
ORDERS CLARIFIED WITH DR. THAKKAR, PATIENT IS TO HAVE IMMOBILIZER BOOT ON AT ALL TIMES. PT IS ALSO NON WEIGHT BEARING ON RIGHT LEG.
--- NOTE | 2024-05-13 12:27 | NUR ---
PATIENT SAT UP FOR LUNCH IN BED. FRACTURE BOOT IS NOW IN PLACE. PT REPORTS PAIN IS 1/10 CURRENTLY, AND COMMENTS ON HOW HEAVY THE BOOT IS TO FINISH OFF OPERATOR AND MOVE. PT NOW EATING LUNCH. MALE PUREWICK STILL IN PLACE AND WORKING WELL FOR HIM.
--- NOTE | 2024-05-13 13:47 | NUR ---
PATIENT C/O HIS HEEL HURTING IN FRACTURE BOOT. BOOT OPENED AND EXTRA PADDING PLACED TO HELP HEEL FEEL LIKE IT'S NOT SLIDING AROUND IN. PT THEN GIVEN BED BATH, SHOWER CAP, AND VONDA CARE DONE. PT UP TO CHAIR WITH 2 PERSON ASSIST AND ONE LEG PIVOT TO CHAIR. PT NOW RESTING IN CHAIR WITH CHAIR ALARM ON, AND WARM BLANKETS PROVIDED. PT DOES REPORT H/A WHICH PRN TYLENOL GIVEN. PATIENT ALSO STATES HE IS FEELING TIRED AND SLEEPY. CMS INTACT IN RIGHT LEG. WILL CONTINUE TO MONITOR.
--- NOTE | 2024-05-13 14:35 | NUR ---
PATIENT USES CALL LIGHT AND STATES HE WOULD LIKE TO GET BACK INTO BED TO REST. 2 PERSON ASSIST TO HELP PATIENT TO STAND FROM CHAIR AND PIVOT INTO BED. PT NOW RESTING. PT REPORTS THAT HEADACHE HAS INCREASED IN INTENSITY HOWEVER, RATING IT A 5/10. PRN TYLENOL GIVEN PRIOR. WILL CONTINUE TO MONITOR.
--- NOTE | 2024-05-13 16:25 | NUR ---
ASSESSMENT COMPLETE. PT STATES HIS HEADACHE IS IMPROVED AFTER HIS NAP. PT HAS BEEN PLAYING ON HIS PHONE AND RELAXING. DENIES FURTHER NEEDS. WILL CONTINUE TO MONITOR.
--- NOTE | 2024-05-13 19:27 | NUR ---
REPORT RECEIVED FROM JIM MICHELE. PATIENT AWAKE WHILE RESTING IN BED. DENIES NEEDS OR CONCERNS AT THIS TIME. CALL LIGHT IN REACH.
--- NOTE | 2024-05-13 20:29 | NUR ---
PATIENT AWAKE AND PARTICIPATES IN ASSESSMENT. REPORTS PAIN IS TOLERABLE AT 3/10 IN HIS RIGHT ANKLE. MALE PUREWICK REPLACED. PATIENT REPORTED HICCUPS AND BURPING AFTER SUPPER. MAALOX GIVEN PER EMAR. SCD ON LLE. EDUCATION PROVIDED. REVIEW PATIENT SAFETY AND CALLING FOR ASSISTANCE, PATIENT VERBALIZED UNDERSTANDING. CALL LIGHT IN REACH WITH BED EXIT ALARM ON.
--- NOTE | 2024-05-13 22:19 | NUR ---
PATIENT RESTING IN BED AWAKE. DENIES NEEDS OR CONCERNS AT THIS TIME. WARM BLANKET OFFERED BUT PATIENT DECLINED. CALL LIGHT IN REACH, BED EXIT ALARM ON.
--- NOTE | 2024-05-13 23:50 | NUR ---
PATIENT RESTING IN BED WITH EYES CLOSED. RESPIRATIONS EVEN AND UNLABORED. PATIENT REPOSITIONS SELF INDEPENDENTLY. CALL LIGHT IN REACH. BED EXIT ALARM ON.
[2024-05-14] VITALS (9 sets, daily range): BP systolic 113–148; BP diastolic 61–81
--- NOTE | 2024-05-14 01:02 | NUR ---
PATIENT RESTING IN BED WHILE AWAKE. ASSISTED TO SIT ON SIDE OF THE BED. VS CHARTED. MEDICATED WITH TYLENOL PER EMAR FOR 3/10 PAIN. PATIENT C/O ITCHING UNDERNEATH IMMOBILIZING BOOT. STRAPS UNDONE AND ASSITED WITH ADJUSTMENT THEN REPLACED STRAPS/SECURED AFTER SKIN CHECK AND PEDAL PULSE AUSCULTATED WITH DOPPLER. ASSISTED PATIENT BACK TO SUPINE POSITION AND BOOSTED UP IN BED. HE REPORTS HE HAS NOT BEEN SLEEPING WELL AND REQUESTS COFFEE, AGREEABLE TO DECAF. DENIES OTHER NEEDS OR CONCERNS. URINE CANISTER EMPTIED FOR 400ML LIGHT SYLVAIN COLORED URINE. CALL LIGHT IN REACH AND BED EXIT ALARM ON.
--- NOTE | 2024-05-14 03:26 | NUR ---
ROUNDING FINDS PATIENT RESTING ON HIS LEFT SIDE WITH EYES CLOSED. RESPIRATIONS EVEN AND UNLABORED. BED EXIT ALARM ON.
--- NOTE | 2024-05-14 04:21 | NUR ---
PATIENT SET OFF BED ALARM BY REACHING FOR PERSONAL ITEMS. VS CHARTED. PATIENT ASKED "IS THIS THE BED I WAS IN?" WHEN ASKED TO CLARIFY, PATIENT REPORTED HIS SISTER GOT HIM A NEW BED AND HE STATED "I THOUGHT I WAS IN MY NEW BED." PATIENT WAS ALERT TO PERSON, BEING AT [facility], WAS CORRECT ON MONTH, YEAR AND PRESIDENT BUT STATED "I AM IN [place] RIGHT NOW." PATIENT THEN FOLLOWED WITH "IS THIS THE ROOM I WILL BE IN WHEN I GO TO [place]?" RE-ORIENTED TO SITUATION AND PLACE AND TIME OF DAY. CMS ASSESSMENT COMPLETED, PEDAL AND POST TIBIAL PULSES HEARD WITH DOPPLER. BOTH PIVS REMAIN PATENT AND FLUSH EASILY. WHEN ASKED IF PATIENT WAS IN PAIN, HE STATED "NO" BUT WOULD THEN WINCE AND THEN ENDORSE PAIN. MEDICATED WITH OXYCODONE PER EMAR. SNACK PROVIDED WELL FRESH WATER. PATIENT REQUESTED MORE COFFEE BUT AGREEABLE TO TRY TO DRINK MORE WATER URINE IS A DARK SYLVAIN COLOR. ASSISTED WITH BLANKETS. CALL LIGHT IN REACH AND BED EXIT ALARM ON.
--- NOTE | 2024-05-14 06:18 | NUR ---
PATIENT CONTINUES TO REPOSTION HIMSELF INDEPENDENTLY WHILE IN BED. RESTING WITH EYES CLOSED AT THIS TIME. PATIENT REPORTED EARLIER IN THE SHIFT THAT HE DOES NOT SLEEP WELL AT BASELINE, OFTEN WAKING DURING THE NIGHT. PROMOTING RESTFUL ENVIRONMENT. CALL LIGHT IN REACH WITH BED EXIT ALARM ON.
--- NOTE | 2024-05-14 08:11 | NUR ---
Breakfast tray delivered. Patient eager to eat. Repositioned in bed. Pt in good spirits this am. 950 of urine emptied from suction cannister. No further needs at this time, call light in reach.
--- NOTE | 2024-05-14 08:42 | NUR ---
PATIENT SITTING UP IN BED EATING BREAKFAST. PATIENT REPORTS PAIN IS 2/10 IN RIGHT ANKLE, BUT OCCASIONALLY IS 9/10 WITH MOVEMENT. FRACTURE BOOT REMAINS IN PLACE. PEDAL PULSE ON RIGHT FOOT IS FOUND WITH DOPPLER. LEG REMAINS DISCOLORED AND MOSTLY YELLOW. SWELLING STILL PRESENT IN ANKLE AREA BUT MORE DISPLACED THAN BEFORE DUE TO BOOT PROVIDING COMPRESSION. SCD ON LEFT LOWER LEG. PT REMAINS ON ROOM AIR. PT ATE 100% OF HIS BREAKFAST. PT TO BE NPO AFTER MIDNIGHT FOR ANKLE SURGERY TOMORROW WITH DR. THAKKAR.
--- NOTE | 2024-05-14 10:36 | NUR ---
PATIENT UP IN CHAIR AFTER PHYS THERAPY WORKED WITH HIM. HE REMAINS NON WEIGHT BEARING ON RIGHT LEG AND FRACTURE BOOT REMAINS ON. CHAIR ALARM ON.
--- NOTE | 2024-05-14 11:40 | NUR ---
PATIENT UP TO BSC TO ATTEMPT TO HAVE A BM. PT REPORTS FEELING DIZZY STILL. BP ASSESSED AND IS 113/66 (80). PT HAS BEEN FEELING DIZZY ON AND OFF THROUGH HOSPITAL STAY. PRN OXYCODONE GIVEN RECENTLY. PT SAT IN CHAIR FOR ABOUT 45 MINS. PT TO USE CALL LIGHT ONCE HE IS DONE ON COMMODE.
--- NOTE | 2024-05-14 12:07 | NUR ---
Assisted patient with transfer from BSC back to bed. Large BM in BSC and small unmeasured void- mixed with stool. Dr France in room to round with patient, lunch tray delivered.
--- NOTE | 2024-05-14 12:42 | NUR ---
FLASH KRUGER IN ROOM TO SEE PATIENT. NEW FRACTURE BOOT PLACED ON PATIENT. PT WILL HAVE SURGERY TOMORROW. PT SITTING UP IN BED EATING HIS LUNCH AT THIS TIME. GABAPENTIN ORDER INCREASED PER VERBAL ORDER.
--- NOTE | 2024-05-14 13:39 | NUR ---
PATIENT SLEEPING AT THIS TIME, LAYING ON LEFT SIDE. BED ALARM ON FOR SAFETY.
[2024-05-14] MEDS ORDERED: GABAPENTIN 300 MG CAP PO SCH (15:00)
--- NOTE | 2024-05-14 17:55 | NUR ---
PATIENT WANTING TO SIT UP ON EDGE OF BED TO EAT HIS DINNER. PT ALSO GIVEN ENSURE, MILK AND COFFEE TO HAVE WITH DINNER. PT TO BE NPO AFTER MIDNIGHT. PRN OXYCODONE GIVEN FOR 8/10 PAIN. PT DENIES FURTHER NEEDS. NEGRITO CAI IN PLACE. DOPPLER CONTINUES TO BE USED FOR ASSESSING PULSE IN BILATERAL FEET.
--- NOTE | 2024-05-14 19:28 | NUR ---
REPORT RECEIVED FROM JIM MICHELE. PATIENT RESTING IN BED WITH EYES CLOSED. BED ALARM ON, CALL LIGHT IN REACH.
--- NOTE | 2024-05-14 20:22 | NUR ---
PATIENT AWAKE AND PARTICIPATES IN ASSESSMENT. MALE PUREWICK CHANGED AND EDUCATION PROVIDED ON USE. PIV REMOVED FROM RIGHT AC, REDNESS NOTED AT SITE. NEW PIV PLACED ON LEFT FA ON FIRST ATTEMPT, TOLERATED WELL. PATIENT REPORTS INCREASED PAIN WITH MOVEMENT OF HIS RLE BUT AT REST IT IS TOLERABLE. PT REQUESTS MORE COFFEE, ENCOURAGED DECAF TO HELP PROMOTE REST TONIGHT, PATIENT AGREEABLE. CALL LIGHT IN REACH, WITH BED ALARM ON.
--- NOTE | 2024-05-14 21:39 | NUR ---
PATIENT LYING RIGHT SIDE, RESTING WITH EYES CLOSED. REPOSITIONS IN BED INDEPENDENTLY. CALL LIGHT IN REACH, BED EXIT ALARM ON FOR SAFETY.
--- NOTE | 2024-05-14 23:30 | NUR ---
BEDSPREAD SEAMER RESPONDED TO BED EXIT ALARM NOTIFICATION. PATIENT FOUND WITH RLE HANGING OUT OF BED. PATIENT STATED, "I WAS JUST TAKING MY SOCK OFF" IN REFERENCE TO THE SOCK THAT WAS ON HIS LEFT FOOT. ASSISTED WITH REPOSITING RLE IN BED. PATIENT RATES PAIN 6/10. MEDICATED PER EMAR. VS OBTAINED CHARTED. URINE CANISTER EMPTIED FOR 700 ML DARK YELLOW URINE. REMINDED PATIENT THAT HE WILL HE WILL BE NPO SOON, PT VERBALIZED UNDERSTANDING. BED EXIT ALARM ON. CALL LIGHT IN REACH.
[2024-05-15] VITALS (8 sets, daily range): BP systolic 121–158; BP diastolic 56–72
--- NOTE | 2024-05-15 00:01 | NUR ---
PATIENT RESTING ON LEFT SIDE WITH EYES CLOSED. FLUIDS REMOVED AND PT MADE NPO STATUS.
--- NOTE | 2024-05-15 00:50 | NUR ---
PATIENT RESTING ON HIS RIGHT SIDE, CONTINUES TO REPOSITION INDEPENDENTLY IN BED. CALL LIGHT AND PERSONAL ITEMS IN REACH. BED EXIT ALARM ON.
[2024-05-15] MEDS ORDERED: LACTATED RINGER'S 1,000 ML IV SCH (01:00)
--- NOTE | 2024-05-15 01:00 | NUR ---
REVIEWED NPO AND FLUID STATUS WITH DR. SANCHEZ. ORDER RECEIVED TO INFUSE LR @75ML/HR.
--- NOTE | 2024-05-15 02:45 | NUR ---
PATIENT RESTING IN BED WITH EYES CLOSED. LYING LEFT SIDE. RESPIRATIONS EVEN AND UNLABORED. CALL LIGHT IN REACH, BED EXIT ALARM ON.
--- NOTE | 2024-05-15 04:10 | NUR ---
PATIENT WAKES EASILY TO ELECTRONIC INTELLIGENCE OFFICER IN ROOM. DOPPLER PULSES HEARD POST TIBIAL AND PEDAL BILATERALLY. IVF STARTED. PATIENT DENIES NEED FOR PAIN MEDICATION AT THIS TIME. VS CHARTED. CALL LIGHT IN REACH WITH BED EXIT ALARM ON.
[2024-05-15 05:26] LABS: BASOPHILS 0.3 % (0-2); EOSINOPHILS 1.5 % (0-6); HEMOGLOBIN 8.3 g/dL (12.0-18.0); LYMPHOCYTES 11.6 % (24-44); MCHC 31.9 g/dl (30-36); MCV 90.9 fl (81-99); MONOCYTES 19.7 % (0-12); NEUTROPHILS 66.9 % (39-80); PLATELET COUNT 235 K/uL (140-440); RBC 2.86 M/ul (4.3-5.7); RDW 21.7 (10.5-15.0)
[2024-05-15 05:37] LABS: ANION GAP 9.8 (7-21); BUN/CREATININE RATIO 14.94 (6.0-28.6); CREATININE, SERUM 0.87 mg/dL (0.70-1.30); MAGNESIUM 1.9 mg/dL (1.8-2.4); POTASSIUM 4.8 mmol/L (3.5-5.1)
--- NOTE | 2024-05-15 06:39 | NUR ---
PATIENT RESTING IN BED ON LEFT SIDE. CALL LIGHT IN REACH, BED EXIT ALARM ON.
--- NOTE | 2024-05-15 07:57 | NUR ---
PATIENT SLEEPING AT THIS TIME. REPORT REC'D FROM GERMAN PROFESSOR AND PLAN OF CARE RESUMES. PT WILL HAVE SURGERY TODAY ON RIGHT ANKLE. UNSURE OF TIME. PT HAS BEEN NPO SINCE MIDNIGHT AND IV ARE NOW GOING AT 75 ML/HR.
--- NOTE | 2024-05-15 09:36 | NUR ---
AM ASSESSMENT COMPLETE ON PATIENT. PT IS NPO. PEDAL PULSES ARE FOUND BY DOPPLER ONLY. THE PEDAL PULSE IS HARD TO FIND, AND IS FOUND JUST TO THE RIGHT OF THE X KVNG. POSTERIOR TIBIAL PULSE IS EASIER TO LOCATE. LEFT FOOT PULSES ARE EASILY FOUND WITH DOPPLER BUT NOT PALPABLE. PT REMAINS WITH NUMBNESS TO BILATERAL LEGS. FRACTURE BOOT REMAINS IN PLACE. PT TO HAVE SURGERY AROUND 1400 TODAY. PT STILL HAVING HICCUPS- PRN MAALOX GIVEN. PT GIVEN TOOTHBRUSH AND ABLE TO BRUSH HIS OWN TEETH. CHLORAHEXIDINE WIPE DOWN TO BE GIVEN BEFORE SURGERY. WILL CONTINUE TO MONITOR.
--- NOTE | 2024-05-15 10:06 | NUR ---
In to visit with Mr. Rothman and explain his IMM letter to him. He understands his current discharge plan to [facility], then to [facility] when ready. He is aware that he will have surgery today and he anticipates that he will discharge in the next 1 to 2 days to [facility]. He is agreeable to sign his letter and denies questions beyond our initial discussion regarding his discharge and the discharge plan.
--- NOTE | 2024-05-15 10:43 | NUR ---
PATIENT HAS VISITOR IN ROOM AT THIS TIME. PT RESTING.
--- NOTE | 2024-05-15 10:56 | NUR ---
UPDATED CLINICALS FAXED TO [facility], THEY NEED TO REVIEW CHART BEFORE THEY ACCEPT PATIENT FOR SNF.
--- NOTE | 2024-05-15 11:39 | NUR ---
DR. SANCHEZ IN TO SEE PATIENT AND PLAN OF CARE DISCUSSED. PT TO GO HAVE SURGERY AROUND NOON.
[2024-05-15] MEDS ORDERED: SODIUM CHLORIDE 0.9% 20 ML IV ONE (11:57)
[2024-05-15] MEDS ORDERED: DEXAMETHASONE SOD PHOS 4 MG/ML VIAL ONE (11:57)
[2024-05-15] MEDS ORDERED: Ropivacaine HCl 0.5% 30 ML VIAL ONE (11:57)
[2024-05-15] MEDS ORDERED: propofoL 200 MG/20 ML VIAL ONE (11:57)
[2024-05-15] MEDS ORDERED: LIDOCAINE HCL 2% 20 MG/ML VIAL INJ ONE (11:57)
--- NOTE | 2024-05-15 12:04 | NUR ---
PATIENT TAKEN DOWN TO SURGERY DEPARTMENT FOR SURGERY AT THIS TIME.
[2024-05-15] MEDS ORDERED: PHENYLEPHRINE HCL 10 MG/ML VIAL ONE (13:00)
[2024-05-15] MEDS ORDERED: ondansetron HCL 4 MG/2 ML VIAL ONE (13:02)
[2024-05-15] MEDS ORDERED: NALOXONE HCL 0.4 MG SYR IV PRN (13:30)
[2024-05-15] MEDS ORDERED: IBLOOD GLUCOSE TEST STRIP 1 EA TEST VI PRN (13:30)
[2024-05-15] MEDS ORDERED: droPERidol 5 MG/2 ML VIAL IV PRN (13:30)
[2024-05-15] MEDS ORDERED: PROCHLORPERAZINE EDISYLATE 10 MG/2 ML VIAL IV PRN (13:30)
[2024-05-15] MEDS ORDERED: ondansetron HCL 4 MG/2 ML VIAL IV PRN (13:30)
[2024-05-15] MEDS ORDERED: HYDROmorphone HCL 1 MG/ML SYR IV PRN (13:30)
[2024-05-15] MEDS ORDERED: fentaNYL citrate 50 MCG/ML SDV IV PRN (13:30)
--- NOTE | 2024-05-15 13:46 | NUR ---
05/15/24 1346 Lida Cancino 1335 PT TO PACU SLEEPY BUT AROUSABLE DENIES PAIN AND NAUSEA. PT ON O2 6L VIA MASK FOGGING NOTED IN MASK. PT RESPONDS TO VERBAL STIMULI.
--- NOTE | 2024-05-15 14:38 | NUR ---
PATIENT RETURNS FROM SURGERY AROUND 1400 FOR ORIF OF RIGHT ANKLE. PATIENT IS ALERT AND ORIENTED. PATIENT IS CURRENTLY PAIN FREE IN RIGHT LEG, AND IS ABLE TO WIGGLE HIS TOES ON RIGHT SIDE VERY MINIMALLY. PT IS TO BE WEIGHT BEARING TOLERATED. PT IS GOING TO BE GOING TO [place] AFTER HOSPITALIZATION FOR THERAPY, AND THEN WILL BE MOVING INTO [facility] AFTER HIS THERAPY. ICE PACK TO FOOT. DORSAL PEDIS PULSE FOUND ONLY BY DOPPLER AND WAS STILL HARD TO FIND. PT'S SISTER IN LAW SHASHA NOW IN ROOM. PT USING PUREWICK FOR VOIDING STILL. WILL CONTINUE TO MONITOR.
--- NOTE | 2024-05-15 15:02 | NUR ---
PT NOT AVAILABLE FOR VISIT. PROVIDED PRAYER.
--- NOTE | 2024-05-15 16:09 | NUR ---
PATIENT CONTINUES TO DO WELL AFTER SURGERY. PT VOIDING TO PUREWICK. PT USING IS AND BEST EFFORT IS AROUND 1999. PT HAS BEEN ABLE TO VERY MILDLY MOVE TOES ON RIGHT FOOT, BUT NOT ABLE TO WIGGLE THEM AT THIS TIME. SKIN IS WARM, CAP REFILL IS 3-4 SECONDS, WHICH WAS THIS WAY BEFORE SURGERY. WILL CONTINUE TO MONITOR.
--- NOTE | 2024-05-15 16:17 | NUR ---
[facility] UNABLE TO ACCEPT PATIENT. SPOKE WITH PATIENT. [facility] AND [facility] ARE HIS NEXT PREFERRED FACILITIES, DOES NOT WANT TO LEAVE TOWN. REFERRALS FAXED TO BOTH FACILITIES.
--- NOTE | 2024-05-15 19:45 | NUR ---
REPORT RECIEVED FROM DIAMOND POLISHER RN. PATIENT RESTING IN BED AT THIS TIME. CALL LIGHT IN REACH. PATIENT CALLS APPROPRIATELY.
--- NOTE | 2024-05-15 20:15 | NUR ---
PATIENT IS RESTING IN BED WITH RIGHT ANKLE ELEVATED. PATIENTS PM MEDS GIVEN PER ORDER. PATIENT RATES 2/10 PAIN IN HIS RLE, PRN MEDICATION GIVEN PER ORDER. PATIENT PROVIDED DECAF COFFEE. PATIENT DENIES ANY FURTHER NEEDS. CALL LIGHT IN REACH.
--- NOTE | 2024-05-15 20:15 | NUR ---
PATIENT CALLED AND ASSISTED ONTO BEDPAN PER MD'S ORDER PATIENT NOT ALLOWED OUT OF BED FOR 24 HRS POST BLOCK PLACEMENT FROM SURGERY. PATIENT TOELRATED WELL AND HAD AN XLARGE BM. PATIENT CLEANED AND NOW RESTING ON HIS BACK WITH LEG POSITONED CENTER ON PILLOW AND ICE PACK PRESENT. PATIENT REPORTS MINIMAL PAIN. CALL LIGHT IN REACH. PATIENTS PEDAL PULSES ARE DOPPLER ONLY. PATIENTS FEET WARM TO TOUCH. PATIENT REPORTS CHRONIC DECREASED FEELING AND SENSATION BLE.
--- NOTE | 2024-05-15 22:09 | NUR ---
PATIENT REQUESTED HIS LIGHTS TO BE TURNED DOWN. PATIENT CALL LIGHT IN REACH. WATER AT THE BEDSIDE. PATIENT DENIES ANY OTHER NEEDS AT THIS TIME.
[2024-05-16] VITALS (9 sets, daily range): BP systolic 138–156; BP diastolic 59–72
--- NOTE | 2024-05-16 | NUR ---
THIS RN IN TO DO I/O. PATIENTS CANISTER NOTED TO BE FULL. EMPTIED. PATIENT WAS AWAKE WHEN RN ENTERED THE ROOM. PATIENT REQUESTED A JELLO AT THIS TIME. LIGHTS ON AND JELLO PROVIDED. CALL LIGHT IN REACH. RN OFFERED TO REPOSITION PATIENT. PATIENT REFUSED. SCD TO LEFT LOWER EXTREMITY AND SUPPORT BOOT ON RIGHT LOWER EXTREMITY.
--- NOTE | 2024-05-16 03:32 | NUR ---
RN IN TO CHECK ON PATIENT AFTER PATIENT TALKING. PATIENT URINE FROM MALE PUREWICK EMPTIED AT THIS TIME. PATIENT VIATSL DONE. CMS REAMINS INTACT. REPLACED ICE PACK TO RIGHT FOOT. RIGHT FOOT REMAINS IN GREEN BOOT. PATIENT TOLERATED WELL. PULSES REMAIN DOPPLER ONLY. FRESH WATER PROVIDED AND CHOCOLATE ENSURE PER PATIENT REQUEST. NO OTHER NEEDS AT THIS TIME.
[2024-05-16 05:29] LABS: HEMOGLOBIN 8.2 g/dL (12.0-18.0); MCH 29.4 (27-36); MCHC 32.8 g/dl (30-36); MCV 89.6 fl (81-99); PLATELET COUNT 264 K/uL (140-440); RBC 2.79 M/ul (4.3-5.7); RDW 21.6 (10.5-15.0)
--- NOTE | 2024-05-16 05:30 | NUR ---
SIGNAL PROCESSING ENGINEER IN TO GET AM LABS. PATIENT REPOSITIONED SELF ONTO HIS SIDE AT THIS TIME.
[2024-05-16 05:45] LABS: ANION GAP 10.6 (7-21); BUN/CREATININE RATIO 14.89 (6.0-28.6); CALCIUM 9.4 mg/dL (8.5-10.1); CREATININE, SERUM 0.94 mg/dL (0.70-1.30); MAGNESIUM 1.9 mg/dL (1.8-2.4); POTASSIUM 4.6 mmol/L (3.5-5.1)
[2024-05-16 06:00] LABS: BANDS, MANUAL DIFF 3; LYMPHOCYTES, MANUAL DIFF 12; MONOCYTES, MANUAL DIFF 23; NEUTROPHILS, MANUAL DIFF 62
--- NOTE | 2024-05-16 07:01 | OR ---
[facility] [address] [place], [place] [address] Signed DATE OF OPERATION: 05/15/2024 SURGEON: Eleazar Cancino MD PREOPERATIVE DIAGNOSIS: Displaced bimalleolar ankle fracture, right. POSTOPERATIVE DIAGNOSIS: Displaced bimalleolar ankle fracture, right PROCEDURE PERFORMED: Open reduction and internal fixation bimalleolar ankle fracture, right. FORM TAMPING MACHINE OPERATOR: Cuca Gallagher PA-C. Cuca was present and critical for all portions of procedure. ANESTHESIA: General. BLOOD LOSS: Minimal. TOURNIQUET TIME: Zero. IMPLANTS: 3.8 x 130 FibuLock with two locking screws on the lateral side, 3.5 x 42 headless screw medially. BRIEF HISTORY: Elham is a 73-year-old gentleman, who suffered an ankle fracture sometime in the last two or three weeks, although it is a little difficult to tell due to his drinking history. The fracture was displaced and angulated. Risks, benefits, and alternatives of surgery were discussed with him and he elected to proceed. PROCEDURE IN DETAIL: Once consent was obtained, he was taken to the operating room. After adequate anesthesia, he was placed on the operating table on hip bump. The leg was prepped and draped in the standard sterile fashion. The lateral side was closed reduced and a Electronically Signed By: ELEAZAR CANCINO MD 05/16/24 0701 PATIENT NAME: ELHAM RODRIGUEZ JOEL OPERATIVE REPORT DATE OF : 50 REPORT #: [id number] PHYSICIAN: ELEAZAR CANCINO MD PCP: NIKOLAS THOMAS MD REPORT IS CONFIDENTIAL AND NOT TO BE RELEASED WITHOUT AUTHORIZATION [facility] [address], [place] [address] Signed percutaneous was introduced to hold the reduction. The distal fibula was approached through a 1 cm incision and the 1st guide pin was advanced from the tip of the fibula engaging the body of the fibula proximally. This was over-reamed using the large reamer. This was then removed and the guidewire was advanced all the way up to the fibula. The 3.0 followed by the 4.0 reamers were used with minimal cortical chatter. We elected to go with 3.8, FibuLock. The FibuLock was placed on the insertion handle and inserted through the distal fibula across the fracture engaging the body of the fibula proximally. It was then tapped until it was well-seated beneath the distal bone. The proximal fins were then deployed. Two distal interlocking screws, one lateral and one anterolateral were placed through separate stab incisions. The insertion handle was then removed. Attention was turned to the medial side. This was reduced with a reduction maneuver previously. The tip of the medial malleolus was located under image intensifier guidance and a stab incision was made there. The guide pin for the headless screw system was then placed through this from the tip of the malleolus across the fracture engaging the body of the tibia proximally. A 42 mm screw was placed over this after drilling it. The screw had extremely good purchase and was providing good compression. It was not felt that a 2nd screw would be necessary. The guide pin was removed. All wounds were cleansed with normal saline and closed with dari. Wounds are dressed with Allevyn dressings and an Iglesia wrap. He was placed back into his fracture boot. He tolerated the procedure well. All sponge, needle, and instrument counts were correct. Eleazar Cancino MD BA/MEDINA /[id number] Copies: ~ Electronically Signed By: ELEAZAR CANCINO MD 05/16/24 0701 PATIENT NAME: ELHAM RODRIGUEZ JOEL OPERATIVE REPORT DATE OF : 50 REPORT #: [id number] PHYSICIAN: ELEAZAR CANCINO MD PCP: NIKOLAS THOMAS MD REPORT IS CONFIDENTIAL AND NOT TO BE RELEASED WITHOUT AUTHORIZATION
--- NOTE | 2024-05-16 07:05 | NUR ---
MD THAKKAR IN TO SEE PATIENT THIS AM. PLAN OF CARE REVIEWED. AWAITING ACCEPTANCE FOR SNF PLACEMENT FOR REHAB. PER MD PATIENT CAN GET UP AND WORK WITH PT/OT THIS AM. NO NEED TO WAIT 24HRS. PATIENT BLOCK WILL BE IN AFFECT STILL SO PATIENT MAY NOT BE ABLE TO FEEL IT.
--- NOTE | 2024-05-16 08:16 | NUR ---
IN PATIENTS ROOM FOR ASSESSMENT AND VITALS. PATIENT EXCITED FOR THE NEWS THAT HE CAN WALK TODAY PER DR. THAKKAR. PT ALSO REPORTS THAT HE WILL BE D/C TO A REHAB FACILITY SOON THERE IS ONE AVAILABLE. PULSES STILL FELT WITH DOPPLER. NEW ICE PACK PROVIDED. PT STILL HAVING HICCUPS ON AND OFF. PT STILL USING PUREWICK. PT TO SEE PT/OT TODAY.
--- NOTE | 2024-05-16 09:14 | NUR ---
PHYS THERAPY AND OT IN ROOM TO SEE PATIENT. PATIENT TO TRY AND GET UP AND MOVE WITH PT. ABLE TO TAKE AM MEDS W/O DIFFICULTY. ASSESSMENT COMPLETE.
--- NOTE | 2024-05-16 11:15 | NUR ---
Spoke with Romel. He is agreeable to SNF placement for rehab prior to going to [facility]. We discussed he must be a 1 person assist to go to [facility]. Pt at times is a 2 person assist and per PT has poor safety awareness. We had this conversation about [facility] multiple times and pt cont. to state he will call family and let them know he cannot go. I corrected him multiple times and let him know he should cont plans to go to [facility]. I had spoken with Margarita the grain spouter, pt will have a room available on the May 22 if he is a 1 person assist. Family do not have time to move in [facility] until Wednesday. The room is not ready. I have faxed the chart to [facility] and the chart to [facility] in [place] was sent yesterday. I am waiting to hear if they will have a bed open.
--- NOTE | 2024-05-16 12:03 | NUR ---
PATIENT SITTING UP IN BED EATING LUNCH. PT HAS BEEN UP TO BATHROOM X2 PERSON ASSIST. PT CONTINUES TO WEAR BOOT, AND STILL HAS ICE PACK ON EXT. THIS WILL BE TAKEN OFF. UNSURE PT'S DISPO TO WHERE EXACTLY, BUT HE IS IN NEED OF SNF LEVEL OF CARE FOR A WHILE BEFORE HE TRANSITIONS TO [facility].
--- NOTE | 2024-05-16 12:37 | NUR ---
VISITED DURING SPIRITUAL CARE ROUNDS. PT VERY HARD OF HEARING AND SUFFERING FROM HICCUPS SO SHORT VISIT. BUILDER BEAM PROVIDED SUPPORTIVE PRESENCE, PRAYER, FACILITATED INTERACTION WITH THERAPY ANIMAL. PT EXPRESSED GRATITUDE.
--- NOTE | 2024-05-16 13:12 | NUR ---
PATIENT MOVED TO ROOM 121 IN HIS BED. REPORT GIVEN TO JIM TREJO WHO WILL RESUME CARE OF PATIENT. ALL PERSONAL BELONGINGS TAKEN WITH PATIENT.
--- NOTE | 2024-05-16 13:20 | NUR ---
Patient arrived to the medical floor from CCU. Patient awake, alert and oriented x3. Patient is notably hard of hearing. Boot to right lower leg; cms intact. Dressing to right ankle is CDI. 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 Patient oriented to room and call light. Bed alarm intact. Patient has no acute distress.
--- NOTE | 2024-05-16 14:32 | NUR ---
PATIENT HAS BEEN SITTING IN HIS CHAIR AND EATINGIN IN HIS CHAIR FOR MEALS. NO COMPLAINT OF PAIN OR NAUSEA. CALL LIGHT HAS BEEN PLACED WITHIN REACH
--- NOTE | 2024-05-16 15:34 | NUR ---
Admin tylenol 650mg po and oxycodone 10mg po for reports of 5/10 RLE pain. Patient visiting with friends at this time, no acute distress.
--- NOTE | 2024-05-16 16:56 | NUR ---
Patient in bed resting, eyes closed, respirations even and non labored. Patient has no notable distress. Personal supplies and call light within reach.
--- NOTE | 2024-05-16 19:37 | NUR ---
RECEIVED REPORT FROM DAY SHIFT RN. PATIENT IS RESTING IN BED WATCHING TV. PATIENT DENIES ANY NEEDS. CALL LIGHT IN REACH. BED ALARM ON FOR SAFETY.
--- NOTE | 2024-05-16 21:40 | NUR ---
PATIENTS VITALS TAKEN AND RECORDED. PATIENT HAS MALE PUREWICK IN PLACE. CANISTER EMPTIED. INTAKE AND OUTPUT RECORDED. PATIENTS IV X2 FLUSHED AND SL PER ORDER. PATIENTS OM MEDS GIVEN PER ORDER. PATIENT RATES PAIN IN RL AT A 3/10, PRN PAIN MEDICATION GIVEN PER ORDER. PATIENT REPOSITIONED IN BED. PATIENT HAS BOOT ON RLE. PATIENTS RLE ELEVATED. PATIENT DENIES ANY FURTHER NEEDS. CALL LIGHT IN REACH. BED ALARM ON FOR SAFETY.
--- NOTE | 2024-05-16 22:00 | NUR ---
PATIENT IS RESTING IN BED ON BACK W/RLE ELEVATED ON A PILLOW. CALL LIGHT IN REACH. BED ALARM ON FOR SAFETY.
--- NOTE | 2024-05-17 00:52 | NUR ---
PATIENTS BED ALARM ALERTED STAFF. PATIENT IS SITTING UP ON BED. PATIENT STATED "I NEED TO USE THE BATHROOM". PATIENT IS CONFUSED. PATIENTS LIGHT TURNED ON AND PATIENT REORIENTED. PATIENT EDUCATED ON USE OF MALE PUREWICK. PATIENT VERBALIZED UNDERSTANDING. PATIENT IS BACK IN BED RESTING. NAD NOTED. NO FURTHER NEEDS NOTED. CALL LIGHT IN REACH. BED ALARM ON FOR SAFETY.
--- NOTE | 2024-05-17 02:26 | NUR ---
PATIENT IS RESTING IN BED WITH EYES CLOSED, RR 16. CALL LIGHT IN REACH. BED ALARM ON FOR SAFETY.
--- NOTE | 2024-05-17 04:13 | NUR ---
PATIENT IS RESTING IN BED WITH EYES CLOSED, RR 15. CALL LIGHT IN REACH. BED ALARM ON FOR SAFETY.
[2024-05-17 05:19] VITALS: BP 119/58
--- NOTE | 2024-05-17 05:25 | NUR ---
PATIENTS VITALS TAKEN ADN RECORDED. INTAKE AND OUTPUT RECORDED. PATIENT REPOSITIONED IN BED. PATIENT DENIES ANY PAIN AT THIS TIME. PATIENT DENIES ANY NEEDS. CALL LIGHT IN REACH. BED ALARM ON FOR SAFETY.
[2024-05-17 05:45] VITALS: BP 119/58
--- NOTE | 2024-05-17 06:02 | NUR ---
PATIENT IS RESTING IN BED WITH EYES CLOSED, RR 15. CALL LIGHT IN REACH. BED ALARM ON FOR SAFETY.
--- NOTE | 2024-05-17 07:41 | NUR ---
REPORT RECEIVED FROM NIGHT RN - PT RESTING IN BED ON SIDE WITH EYES CLOSED. RR EVEN AND UNLABORED. CALL LIGHT IN REACH.
--- NOTE | 2024-05-17 08:30 | NUR ---
Texted Sharron at [facility] asking if this pt can admit today.
--- NOTE | 2024-05-17 09:24 | NUR ---
SPOKE WITH DEJAN AT [facility]. THEY CAN ACCEPT PATIENT TODAY AND TRANSPORT HIM FROM THIS FACILITY TO [facility]IRS TODAY, SHE WILL CALL BACK WITH A TRANSPORT TIME.
--- NOTE | 2024-05-17 09:37 | NUR ---
SPOKE WITH PATIENT. DR. SANCHEZ NOTIFIED OF DC PLAN, CHARGE NURSE NOTIFIED OF DC PLAN. LEFT A MESSAGE FOR POOJA, SISTER, AT [phone].
--- NOTE | 2024-05-17 09:56 | NUR ---
ASSESSMENT COMPLETE - PT LOOKING FORWARD FOR DC PLAN TO SNF THIS AM. PT RATES PAIN 1/10 BUT REQUESTS TYLENOL FOR TRANSPORT LATER. CMS INTACT DISTAL TO FX. VS STABLE.
[2024-05-17 10:01] VITALS: BP 109/62
--- NOTE | 2024-05-17 10:30 | NUR ---
Chart with orders, PASRR, emar, dc summary faxed to Sharron at [facility]. Texted orders have been faxed and pt is ready for dc. Their van will pick pt up at 11:00.
--- NOTE | 2024-05-17 10:50 | NUR ---
Notified by pt he possibly has a secondary insurance. He does not have his card with him. Friend will go to his home and check his bills. I called Rianna in admitting and pt also has Medicaid. I requested she update his face sheet and I will fax to [facility] as this make a tremendous difference in the length pt can remain in a SNF.
== END 2024-05-17 11:15 | DRG 493 ==
LOC: ED 02:44 → MS 13:14 → CCU 13:14 → MS 05-16 13:05
PROVIDERS: Emergency Medicine; Internal Medicine; Specialist; ADMIT Student in an Organized Health Care Education/Training Program; ATTEND Student in an Organized Health Care Education/Training Program
PROC: 009U3ZX Drainage of Spinal Canal, Percutaneous Approach, Diagnostic (ICD-10-PCS; 2024-05-11)
PROC: 0QSG04Z Reposition Right Tibia with Internal Fixation Device, Open Approach (ICD-10-PCS; 2024-05-15)
PROC: 0QSJ04Z Reposition Right Fibula with Internal Fixation Device, Open Approach (ICD-10-PCS; principal; 2024-05-15 14:15)
DX: S82.851A Displaced trimalleolar fracture of right lower leg, initial encounter for closed fracture (principal); L03.115 Cellulitis of right lower limb; G62.9 Polyneuropathy, unspecified; D64.9 Anemia, unspecified; I48.91 Unspecified atrial fibrillation; F10.129 Alcohol abuse with intoxication, unspecified; G89.29 Other chronic pain; M54.9 Dorsalgia, unspecified; M10.9 Gout, unspecified; I10 Essential (primary) hypertension; E83.42 Hypomagnesemia; W19.XXXA Unspecified fall, initial encounter; Z87.891 Personal history of nicotine dependence; Z79.899 Other long term (current) drug therapy
CPT/HCPCS: 01480; 36415; 62270; 64447; 70450; 70496; 70498; 71045; 72146; 72148; 73600; 73610; 80048; 80053; 80307; 81001; 82140; 82607; 82945; 83735; 84100; 84157; 84484; 84550; 85025; 85060; 85379; 85610; 85730; 86922; 87070; 87075; 87205; 89051; 90471; 90715; 93005; 93010; 93971; 94640; 94760; 97162; 97164; 97165; 97530; 97535; 99285-25; A9270; C1713; C1769; G0480; J0696; J0878; J1100; J2060; J2371; J2405; J2704; J2795; J3411; J3475; J7030; J7121; P9035; Q9967